=== PATIENT | male | born 1995 | race Caucasian/White ===

== ENCOUNTER 2019-12-27 22:29 | Emergency (ER) | payer OTHER ==
[~2019-12-27] VITALS: Ht 190.5 cm; Wt 81.6 kg
--- NOTE | 2019-12-27 22:42 | NUR ---
Patient present to ER with c/o of palpitations after eating an edible marijuana. Patient's HR noted to be 160 on arriva. Placed in Bed 2B, attached to bedside monitor. EKG done, results given to Dr. Ward. Ice placed to patient's head. Dr. Ward at bedside on patient's arrival to ED.
[2019-12-27] MEDS ORDERED: HALOPERIDOL LACTATE 5 MG/1 ML VIAL ONE (22:52)
[2019-12-27] MEDS ORDERED: LORAZEPAM 2 MG/1 ML VIAL ONE (22:52)
[2019-12-27] MEDS ORDERED: HALOPERIDOL LACTATE 5 MG/1 ML VIAL IV ONE (23:00)
[2019-12-27] MEDS ORDERED: LORAZEPAM 2 MG/1 ML VIAL IV ONE (23:00)
[2019-12-27 23:02] LABS: BASOPHILS % (AUTO) 0.4 % (0.0-2.0); EOSINOPHILS # (AUTO) 0.1 K/uL (0.0-0.7); EOSINOPHILS % (AUTO) 1.3 % (0.0-7.0); HEMATOCRIT 45.4 % (36.7-47.1); HEMOGLOBIN 15.3 g/dL (12.5-16.3); LYMPHOCYTES # (AUTO) 3.9 K/uL (20.0-40.0); LYMPHOCYTES % (AUTO) 40.9 % (20.5-51.5); MEAN CORPUSCULAR HEMOGLOBIN 31.4 uug (23.8-33.4); MEAN CORPUSCULAR HGB CONC 34 g/dL (32.5-36.3); MEAN CORPUSCULAR VOLUME 93.5 fL (73.0-96.2); MONOCYTES # (AUTO) 0.7 K/uL (2.0-10.0); MONOCYTES % (AUTO) 7.7 % (0.0-11.0); NEUTROPHILS # (AUTO) 4.8 K/uL (1.8-8.9); NEUTROPHILS % (AUTO) 49.7 % (38.5-71.5); PLATELET COUNT (AUTO) 233 K/uL (152-348); RED BLOOD CELL COUNT(AUTO) 4.85 MIL/uL (4.06-5.63); WHITE BLOOD COUNT (AUTO) 9.6 K/uL (3.6-10.2)
[2019-12-27 23:14] LABS: CARBON DIOXIDE 25 mmol/L (21-32); CHLORIDE 102 mmol/L (98-107); CREATININE 1.3 mg/dL (0.6-1.3); GLUCOSE 189 mg/dL (74-106); UREA NITROGEN, BLOOD 23 mg/dL (7-18)
--- NOTE | 2019-12-27 23:15 | NUR ---
Patient's HR improved, pt in no acute distress.
[2019-12-27 23:19] LABS: ALANINE AMINOTRANSFERASE 55 U/L (16-63); ALKALINE PHOSPHATASE 77 U/L (50-136); ASPARTATE AMINOTRANSFERASE 22 U/L (15-37); BILIRUBIN,DIRECT 0.1 mg/dL (0.0-0.2); BILIRUBIN,TOTAL 0.5 mg/dL (0.2-1.0); TOTAL PROTEIN, SERUM 7.6 g/dL (6.4-8.2)
[2019-12-27 23:22] LABS: POTASSIUM 2.8 mmol/L (3.5-5.1)
[2019-12-27 23:24] LABS: ETHANOL < 3 MG/DL (0-0)
[2019-12-27 23:27] LABS: THYROID STIMULATING HORMONE 2.169 mIU/mL (0.358-3.740)
[2019-12-27] MEDS ORDERED: POTASSIUM CHLORIDE 20 MEQ TAB.PRT.SR PO ONE (23:30)
[2019-12-27] MEDS ORDERED: POTASSIUM CHLORIDE 20 MEQ TAB.PRT.SR ONE (23:32)
--- NOTE | 2019-12-28 00:11 | NUR ---
Per Dr. Ward, patient is stable for discharge. DC instructions and prescriptions given and reviewed with patient, verbalized understanding. IV dc'd, noted with tip intact. Left ER in stable condition, ambulated out of ER with steady gait.
[2019-12-28 00:13] VITALS: BP 124/79
--- NOTE | 2019-12-28 00:30 | NUR ---
When cleaning the gurney, noted patient left his DC instructions and rx. Placed call to patient [phone], noted number not working. DC instructions given to VARSHA Barrios.
== END 2019-12-28 00:11 | disposition home or self-care (01) ==
LOC: ER 22:31
DX: F12.929 Cannabis use, unspecified with intoxication, unspecified (principal); F41.8 Other specified anxiety disorders; R00.0 Tachycardia, unspecified
CPT/HCPCS: 36415; 71045; 80048; 80076; 84443; 85025; 93005; 96374; 96375; 99285; G0480; J1630; J2060; A4663; J7030